=== PATIENT | female | born 1955 | race Two or more races ===

== ENCOUNTER 2022-10-04 11:30 | Inpatient (IN) | payer MEDICARE, OTHER ==
[~2022-10-04] VITALS: Ht 165.1 cm; Wt 68.0 kg
--- NOTE | 2022-10-04 11:50 | NUR ---
ROC TINOCO [phone]. WILL FOR OLLIE.
[2022-10-04] MEDS ORDERED: DICL75TA5 PO (12:20)
[2022-10-04] MEDS ORDERED: METF-442 PO (12:20)
[2022-10-04] MEDS ORDERED: LOSA100T31 PO (12:20)
[2022-10-04] MEDS ORDERED: CLOT15CR27 TP (12:20)
[2022-10-04] MEDS ORDERED: SIMV-46 PO (12:20)
[2022-10-04] MEDS ORDERED: EMPA10TA PO (12:20)
[2022-10-04] MEDS ORDERED: GLIM2TAB31 PO (12:20)
[2022-10-04] MEDS ORDERED: HYDR25TA4 PO (12:20)
[2022-10-04] MEDS ORDERED: DICL100G34 TP (12:20)
[2022-10-04] MEDS ORDERED: FLUT100D IH (12:20)
[2022-10-04] MEDS ORDERED: CHOL100043 PO (12:20)
[2022-10-04] MEDS ORDERED: GABA-532 PO (12:20)
[2022-10-04] MEDS ORDERED: AMLO10TA4 PO (12:20)
--- NOTE | 2022-10-04 14:19 | NUR ---
GOT BED 219-B ADMITTING INFORMED.
--- NOTE | 2022-10-04 14:49 | NUR ---
RN- ADMISSION NOTES PATIENT IS A 66 YEAR OLD FEMALE ADMITTED FROM [facility] ER. PATIENT WAS PLACED ON A 5150 HOLD FOR GD. PER HOLD, PATIENT STATES, "MY NEIGHBORS ARE OUT TO GET ME AND KILL ME." UPON FACE TO FACE ASSESSMENT, PATIENT IS ALERT AND ORIENTED X3, UNCOOPERATIVE, DISHEVELED WITH A BLUNTED AFFECT, AND PRESSURED SPEECH. DENIES SI/HI AT THIS TIME. PATIENT IS DISORIENTED, CONFUSED, MANIC, HYPERVERBAL, GUARDED, ANXIOUS, SUSPICIOUS, EASILY OVERWHELMED, CRYING OUT MULTIPLE DIFFERENT NAMES, AND A DISORGANIZED THOUGHT PROCESS. SKIN INTACT, PATIENT REFUSED ADMITTING PHOTO AND BLOOD GLUCOSE CHECK. VITAL SIGNS TAKEN: B/P 145/65, P 72, T 97.6, R 16, O2 SAT 99% ON ROOM AIR. INFORMED PSYCHIATRIST DR. BIRMINGHAM AND MED TRAINING PERSONNEL SUPERVISOR DR. ZHONG OF ADMISSION WITH PSYCHIATRIST ADMITTING ORDERS COMPLETED. PATIENT HANDBOOK GIVEN WITH PATIENT RIGHTS AND GUIDE TO PRESCRIPTIONS. WILL CONTINUE TO MONITOR Q 15 MINUTES PER GPS PROTOCOL FOR SAFETY AND BEHAVIOR.
[2022-10-04] MEDS ORDERED: MAGNESIUM HYDROXIDE 30 ML UDC PO PRN (15:00)
[2022-10-04] MEDS ORDERED: MAG HYDROX/AL HYDROX/SIMETH 30 ML UDC PO PRN (15:00)
--- NOTE | 2022-10-04 15:51 | NUR ---
RN-CO: DR BIRMINGHAM WAS NOTIFIED AND GAVE ADMITTING ORDERS, NOTED. DR ZHONG MADE AWARE OF THE PT ADMISSION AND FOR H&P AND TO RECONCILE HOME MEDICATIONS.
[2022-10-04 16:00] VITALS: BP 145/65
[2022-10-04] MEDS ORDERED: BLOOD SUGAR DIAGNOSTIC 1 EACH STRIP IN ONE (16:30)
[2022-10-04] MEDS ORDERED: DICLOFENAC TOPICAL 100 GM TUBE TP PRN (17:00)
[2022-10-04] MEDS: CLOTRIMAZOLE 1% 15 GM TUBE TP SCH (17:00)
[2022-10-04] MEDS: GLIMEPIRIDE 1 MG TABLET PO SCH ×2 (17:00→17:37)
[2022-10-04] MEDS: DICLOFENAC SODIUM 25 MG TABLET.DR PO SCH ×2 (17:00→17:37)
[2022-10-04] MEDS ORDERED: GABAPENTIN 100 MG CAPSULE PO PRN (17:00)
[2022-10-04] MEDS: METFORMIN 500 MG TABLET PO SCH ×2 (17:00→17:36)
--- NOTE | 2022-10-04 18:45 | NUR ---
RN- CLOSING NOTES PATIENT IS AWAKE, SITTING UP IN THE NOA CHAIR. BREATHING EVEN AND NON LABORED WITH NO S/S OF DISTRESS. PATIENT IS UNCOOPERATIVE, CONFUSED, DISORIENTED, GUARDED, DEPRESSED, ANXIOUS, LABILE, EASILY OVERWHELMED, HYPERVERBAL, WITH BOUTS OF CRYING OUT. PATIENT IS NOT MEDICATION COMPLIANT, EDUCATION OF RISKS/BENEFITS AND ENCOURAGEMENT X3 GIVEN, PATIENT CONTINUES TO REFUSE. DENIES SI/HI AT THIS TIME. WILL CONTINUE TO MONITOR Q 15 MINUTES FOR SAFETY AND BEHAVIOR.
[2022-10-04 20:00] VITALS: BP 133/89
[2022-10-04] MEDS: LORAZEPAM 0.5 MG TABLET PO PRN (20:27)
[2022-10-04 20:39] VITALS: BP 133/89
[2022-10-04] MEDS: TEMAZEPAM 7.5 MG CAPSULE PO PRN (22:13)
[2022-10-04] MEDS: SIMVASTATIN 20 MG TABLET PO SCH (22:13)
[2022-10-04] MEDS: BUDESONIDE RESPULE INH 0.5 MG/2 ML AMPUL.NEB NEB SCH (23:29)
[2022-10-05] MEDS: LORAZEPAM 0.5 MG TABLET PO PRN ×3 (07:05→09:02)
[2022-10-05] MEDS: BUDESONIDE RESPULE INH 0.5 MG/2 ML AMPUL.NEB NEB SCH ×2 (07:05→15:00)
--- NOTE | 2022-10-05 07:05 | NUR ---
rn notes: patient refused medication spoke to son over the phone but still refused medication, patient is agitated, with crying episode will continue to monitor.
[2022-10-05 08:00] VITALS: BP 121/57
[2022-10-05] MEDS: GLIMEPIRIDE 1 MG TABLET PO SCH ×2 (08:43→16:21)
[2022-10-05] MEDS: CHOLECALCIFEROL (VITAMIN D 3) 400 UNIT TABLET PO SCH (08:44)
[2022-10-05] MEDS: LOSARTAN POTASSIUM 50 MG TABLET PO SCH (08:45)
[2022-10-05] MEDS: HYDROCHLOROTHIAZIDE 25 MG TABLET PO SCH (08:46)
[2022-10-05] MEDS: METFORMIN 500 MG TABLET PO SCH ×2 (08:46→16:21)
[2022-10-05] MEDS: AMLODIPINE BESYLATE 10 MG TABLET PO SCH (08:47)
[2022-10-05] MEDS: DICLOFENAC SODIUM 25 MG TABLET.DR PO SCH (09:03)
[2022-10-05] MEDS: ACETAMINOPHEN 325 MG TABLET PO PRN ×2 (09:13→21:15)
--- NOTE | 2022-10-05 09:13 | NUR ---
NURSE NOTE: PT VERY ANXIOUS, CRYING AND C/O PAIN. ATIVAN AND TYL ADMIN ORDERED. PT JODIE WELL. WILL CONT TO MONITOR.
[2022-10-05] MEDS: CLOTRIMAZOLE 1% 15 GM TUBE TP SCH ×2 (09:58→16:29)
--- NOTE | 2022-10-05 10:05 | NUR ---
NURSE NOTE: PT CALM AT THIS TIME. SAYS THAT SHE FEELS BETTER. LESS PAIN AT THIS TIME. WILL CONT TO MONITOR.
[2022-10-05 16:00] VITALS: BP 112/55
[2022-10-05] MEDS: DICLOFENAC 75 MG PO SCH (16:21)
[2022-10-05] MEDS: CEPHALEXIN MONOHYDRATE 500 MG CAPSULE PO SCH ×2 (16:21→21:00)
[2022-10-05 16:27] LABS: BASOPHILS # (AUTO) 0.1 K/uL (0.0-0.2); BASOPHILS % (AUTO) 1.9 % (0.0-2.0); EOSINOPHILS % (AUTO) 3.4 % (0.0-6.0); HEMATOCRIT 39 % (33-45); HEMOGLOBIN 13.2 g/dL (11.5-14.8); LYMPHOCYTES # (AUTO) 1.6 K/uL (0.8-4.8); LYMPHOCYTES % (AUTO) 20.6 % (20.0-44.0); MEAN CORPUSCULAR HGB CONC 34 g/dl (31.0-36.0); MEAN CORPUSCULAR VOLUME 94 fL (82-100); MONOCYTES # (AUTO) 0.5 K/uL (0.1-1.30); MONOCYTES % (AUTO) 6.5 % (2.0-12.0); NEUTROPHILS # (AUTO) 5.2 K/uL (1.8-8.9); NEUTROPHILS % (AUTO) 67.6 % (43.0-81.0); PLATELET COUNT (AUTO) 300 K/uL (150-450); RED BLOOD CELL COUNT(AUTO) 4.21 MIL/uL (4.0-5.2); WHITE BLOOD COUNT (AUTO) 7.6 K/uL (4.3-11.0)
[2022-10-05] MEDS ORDERED: OLANZAPINE 2.5 MG TABLET PO PRN (16:30)
[2022-10-05 16:34] LABS: CALCIUM, SERUM 9.5 mg/dL (8.5-10.1); CREATININE 0.6 mg/dL (0.6-1.3); POTASSIUM 3.8 mmol/L (3.5-5.1)
--- NOTE | 2022-10-05 19:25 | NUR ---
NURSE NOTE: URINE SPEC COLLECTED FOR UA AND UCX. CALLED LAB TO ENDS BREAKAGE CLERK. WILL CONT TO MONITOR.
[2022-10-05 20:20] LABS: BILIRUBIN,URINE NEGATIVE (NEGATIVE); COLOR,URINE YELLOW (YELLOW); LEUKOCYTE ESTERASE ,URINE NEGATIVE (NEGATIVE); NITRITE, URINE NEGATIVE (NEGATIVE); PROTEIN,URINE NEGATIVE (NEGATIVE); UGLUCOSE 3+ mg/dL (NEGATIVE); UROBILINOGEN,URINE 0.2 EU/dL (0.2)
[2022-10-05] MEDS ORDERED: OLANZAPINE 2.5 MG TABLET PO SCH (21:00)
[2022-10-05 21:15] VITALS: BP 145/67
[2022-10-05] MEDS: SIMVASTATIN 20 MG TABLET PO SCH (21:15)
[2022-10-05] MEDS: ENOXAPARIN SODIUM 40 MG/0.4 ML DISP.SYRIN SQ SCH (21:18)
[2022-10-05 21:26] LABS: BACTERIA,URINE None seen /HPF (None Seen); RBC,URINE 0-2 /HPF (0-2); WBC,URINE 0-2 /HPF (0-3)
[2022-10-05 21:27] LABS: HYALINE CASTS, URINE Few /LPF (None Seen); MUCUS,URINE Few /LPF (None Seen)
--- NOTE | 2022-10-05 21:30 | NUR ---
RN NOTE SPOKE WITH ENID OF [facility] ABOUT KEFLEX. SINCE IT WAS GIVEN AT 1600 AND IS Q12H, I WAS INFORMED TO GIVE THE 2100 DOSE AT 0000 TO GET BACK ONTO STANDARD TIME. CHARGE NURSE LINDA INFORMED. WILL START Q12H AT 0900 TOMORROW.
--- NOTE | 2022-10-06 00:32 | NUR ---
RN NOTE PT REFUSING KEFLEX AND ATIVAN AT THIS TIME. PT WILL NOT STOP CRYING AT THIS TIME. OBTAINED COMPUTER FORENSICS ANALYST BUT PT IS CONFUSED. CHARGE NURSE LINDA GARCIA.
[2022-10-06] MEDS: BUDESONIDE RESPULE INH 0.5 MG/2 ML AMPUL.NEB NEB SCH ×2 (07:05→16:16)
--- NOTE | 2022-10-06 07:14 | NUR ---
GPS RN NOTE RECEIVED PATIENT AWAKE IN GERICHAIR, NO S/S OF DISTRESS OR DISCOMFORT. PATIENT A/Ox2, COLOMBIAN SPEAKING. OCCASIONAL EPISODES OF CRYING AND YELLING, NO OTHER BEHAVIOR NOTED. WILL CONTINUE TO MONITOR.
--- NOTE | 2022-10-06 07:56 | NUR ---
PATIENT REFUSED TX. CLINICAL APPLICATIONS SPECIALIST NOTIFIED. Addendum: 10/06/22 at 0756 by CHRIS OBRIEN RT Amended: Links added.
[2022-10-06 08:00] VITALS: BP 109/53
[2022-10-06] MEDS: CHOLECALCIFEROL (VITAMIN D 3) 400 UNIT TABLET PO SCH (08:56)
[2022-10-06] MEDS: CEPHALEXIN MONOHYDRATE 500 MG CAPSULE PO SCH ×2 (08:56→21:23)
[2022-10-06] MEDS: GLIMEPIRIDE 1 MG TABLET PO SCH ×2 (08:56→16:21)
[2022-10-06] MEDS: METFORMIN 500 MG TABLET PO SCH ×2 (08:56→16:21)
[2022-10-06] MEDS: DICLOFENAC 75 MG PO SCH ×2 (08:58→16:20)
[2022-10-06] MEDS: CLOTRIMAZOLE 1% 15 GM TUBE TP SCH ×2 (08:58→16:20)
[2022-10-06] MEDS: LOSARTAN POTASSIUM 50 MG TABLET PO SCH (09:00)
[2022-10-06] MEDS: LORAZEPAM 0.5 MG TABLET PO PRN (09:00)
[2022-10-06] MEDS: AMLODIPINE BESYLATE 10 MG TABLET PO SCH (09:00)
[2022-10-06] MEDS: HYDROCHLOROTHIAZIDE 25 MG TABLET PO SCH (09:00)
--- NOTE | 2022-10-06 09:10 | NUR ---
RN NOTE PATIENT AGITATED AND ANXIOUS, CRYING AND UNABLE TO CALM. PRN LORAZEPAM ADMINISTERED.
[2022-10-06] MEDS: HYDROCODONE/APAP 5/325MG TABLET PO PRN ×2 (10:04→16:21)
--- NOTE | 2022-10-06 10:20 | NUR ---
RN NOTE [facility] EXPRESSED PAIN 7/10 OF R HIP. PRN NARCO ADMINISTERED.
--- NOTE | 2022-10-06 11:04 | NUR ---
FERDINAND Initial Discharge Note: Pt currently resides at home located at [facility] [address] [facility], [place] [address]; ([phone]). FERDINAND will contact pt's family. FERDINAND will work with the MD, family, and treatment team to help coordinate appropriate discharge.
--- NOTE | 2022-10-06 11:04 | NUR ---
FERDINAND Clinical Note: Pt placed on a 5150 hold for GD. Per hold, pt has been refusing care at home. Pt currently resides at home located at [facility] [address] [facility], [place] [address]; ([phone]). FERDINAND will contact pt's family.
--- NOTE | 2022-10-06 11:05 | NUR ---
Treatment Plan: Pt unable to sign treatment plan due to confusion.
--- NOTE | 2022-10-06 15:31 | NUR ---
FERDINAND Family Contact: FERDINAND contacted pt's daughter Mala ([phone]) to discuss treatment and discharge plan. FERDINAND left a voicemail.
[2022-10-06 16:10] VITALS: BP 123/65
--- NOTE | 2022-10-06 17:24 | NUR ---
RN NOTE PATIENT COMPLAINED OF PAIN OF R HIP, PRN NARCO ADMINISTERED FOR PAIN 11/16.
--- NOTE | 2022-10-06 18:52 | NUR ---
GPS RN CLOSING NOTE PATIENT AWAKE IN GERICHAIR, EATING WITH FAMILY. NO S/S OF DISTRESS OR DISCOMFORT. PATIENT A/Ox2, FRENCH SPEAKING. OCCASIONAL EPISODES OF CRYING OUT, NO OTHER BEHAVIOR NOTED. WILL CONTINUE TO MONITOR.
[2022-10-06 20:32] VITALS: BP 121/76
[2022-10-06] MEDS ORDERED: OLANZAPINE 2.5 MG TABLET PO SCH (21:00)
[2022-10-06] MEDS: ENOXAPARIN SODIUM 40 MG/0.4 ML DISP.SYRIN SQ SCH (21:22)
[2022-10-06] MEDS: SIMVASTATIN 20 MG TABLET PO SCH (21:22)
[2022-10-06] MEDS: TEMAZEPAM 7.5 MG CAPSULE PO PRN (23:51)
[2022-10-07] MEDS: LORAZEPAM 0.5 MG TABLET PO PRN ×2 (03:54→11:36)
--- NOTE | 2022-10-07 06:52 | NUR ---
GPS RN CLOSING NOTE PATIENT AWAKE IN GERICHAIR,AOX2 WITH CONFUSION UKRAINIAN SPEAKING.NO SOB/DISTRESS NOTED, OCCASIONAL EPISODES OF CRYING OUT,ANXIOUS,ALL MEDS GIVEN ORDERED,ALL NEEDS ATTENDED,PT TOOK HER MEDS,WILL ENDORSED TO NEXT SHIFT,
[2022-10-07 08:00] VITALS: BP 144/65
[2022-10-07] MEDS: BUDESONIDE RESPULE INH 0.5 MG/2 ML AMPUL.NEB NEB SCH ×2 (08:11→14:56)
[2022-10-07] MEDS ORDERED: OLANZAPINE 2.5 MG TABLET PO SCH (09:00)
[2022-10-07] MEDS: CHOLECALCIFEROL (VITAMIN D 3) 400 UNIT TABLET PO SCH (09:03)
[2022-10-07] MEDS: CEPHALEXIN MONOHYDRATE 500 MG CAPSULE PO SCH ×2 (09:03→21:11)
[2022-10-07] MEDS: METFORMIN 500 MG TABLET PO SCH ×2 (09:04→16:39)
[2022-10-07] MEDS: AMLODIPINE BESYLATE 10 MG TABLET PO SCH (09:04)
[2022-10-07] MEDS: LOSARTAN POTASSIUM 50 MG TABLET PO SCH (09:04)
[2022-10-07] MEDS: GLIMEPIRIDE 1 MG TABLET PO SCH ×2 (09:04→16:39)
[2022-10-07] MEDS: HYDROCHLOROTHIAZIDE 25 MG TABLET PO SCH (09:05)
[2022-10-07] MEDS: CLOTRIMAZOLE 1% 15 GM TUBE TP SCH ×2 (09:06→16:41)
[2022-10-07] MEDS: DICLOFENAC 75 MG PO SCH ×2 (09:06→16:41)
[2022-10-07 11:33] LABS: ALBUMIN 4.1 g/dL (3.4-5.0); BILIRUBIN,TOTAL 0.5 mg/dL (0.2-1.0); CREATININE 0.7 mg/dL (0.6-1.3); POTASSIUM 3.5 mmol/L (3.5-5.1); TOTAL PROTEIN, SERUM 7.7 g/dL (6.4-8.2)
--- NOTE | 2022-10-07 11:36 | NUR ---
NURSE NOTE: PT EXTREMELY ANXIOUS. CRYING, UNABLE TO REDIRECT. ATIVAN PO ADMIN ORDERED. PT JODIE WELL. WILL CONT TO MONITOR.
[2022-10-07 11:44] LABS: BASOPHILS % (AUTO) 0.5 % (0.0-2.0); EOSINOPHILS % (AUTO) 1.1 % (0.0-6.0); HEMATOCRIT 39 % (33-45); HEMOGLOBIN 13.4 g/dL (11.5-14.8); LYMPHOCYTES % (AUTO) 21.6 % (20.0-44.0); MEAN CORPUSCULAR HGB CONC 34 g/dl (31.0-36.0); MEAN CORPUSCULAR VOLUME 93 fL (82-100); MONOCYTES # (AUTO) 0.7 K/uL (0.1-1.30); NEUTROPHILS # (AUTO) 6.4 K/uL (1.8-8.9); NEUTROPHILS % (AUTO) 68.8 % (43.0-81.0); PLATELET COUNT (AUTO) 328 K/uL (150-450); RED BLOOD CELL COUNT(AUTO) 4.21 MIL/uL (4.0-5.2); WHITE BLOOD COUNT (AUTO) 9.4 K/uL (4.3-11.0)
--- NOTE | 2022-10-07 12:30 | NUR ---
NURSE NOTE: DAUGHTER AT BEDSIDE, PT CALM AT THIS TIME. ATIVAN EFFECTIVE AT THIS TIME. WILL CONT TO MONITOR.
[2022-10-07] MEDS: risperiDONE 1 MG TABLET PO SCH ×2 (12:48→16:38)
[2022-10-07 16:00] VITALS: BP 144/53
[2022-10-07] MEDS: ACETAMINOPHEN 325 MG TABLET PO PRN (17:23)
--- NOTE | 2022-10-07 17:30 | NUR ---
NURSE NOTE: PT C/O PAIN. REQUESTED NESSA AT THIS TIME. WILL CONT TO MONITOR. Addendum: 10/07/22 at 1748 by STEPHANIE MCCOLLUM RN NESSA SANTAMARIA.
[2022-10-07 20:10] VITALS: BP 130/71
[2022-10-07] MEDS: ENOXAPARIN SODIUM 40 MG/0.4 ML DISP.SYRIN SQ SCH (21:11)
[2022-10-07] MEDS: SIMVASTATIN 20 MG TABLET PO SCH (21:11)
[2022-10-07] MEDS: TEMAZEPAM 7.5 MG CAPSULE PO SCH (21:12)
[2022-10-08] MEDS: ACETAMINOPHEN 325 MG TABLET PO PRN (06:26)
[2022-10-08] MEDS: LORAZEPAM 0.5 MG TABLET PO PRN ×2 (06:46→19:32)
--- NOTE | 2022-10-08 07:00 | NUR ---
DOG CONTROL OFFICER OPENING NOTE PATIENT AWAKE, ORIENTED X2 CRYING. ATIVAN WAS GIVEN BY NIGHT NURSE, AWAITING FOR RESULTS. NO RESPIRATORY DISTRESS NOTED. SITTING ON NOA CHAIR WITH TABLE ACROSS THE STOMACH. SAFETY MEASURES IN PLACE, NOA CHAIR LOCKED AT PRESENT, BED LOCKED TO THE LOWEST POSITION. CONT. TO MONITOR.
[2022-10-08] MEDS: BUDESONIDE RESPULE INH 0.5 MG/2 ML AMPUL.NEB NEB SCH (07:30)
[2022-10-08 08:00] VITALS: BP 133/69
[2022-10-08] MEDS: CHOLECALCIFEROL (VITAMIN D 3) 400 UNIT TABLET PO SCH (09:46)
[2022-10-08] MEDS: CEPHALEXIN MONOHYDRATE 500 MG CAPSULE PO SCH ×3 (09:46→22:12)
[2022-10-08] MEDS: HYDROCHLOROTHIAZIDE 25 MG TABLET PO SCH (09:47)
[2022-10-08] MEDS: risperiDONE 1 MG TABLET PO SCH ×6 (09:47→22:13)
[2022-10-08] MEDS: GLIMEPIRIDE 1 MG TABLET PO SCH ×3 (09:47→17:12)
[2022-10-08] MEDS: METFORMIN 500 MG TABLET PO SCH ×3 (09:48→17:13)
[2022-10-08] MEDS: AMLODIPINE BESYLATE 10 MG TABLET PO SCH (09:48)
[2022-10-08] MEDS: LOSARTAN POTASSIUM 50 MG TABLET PO SCH (09:48)
[2022-10-08] MEDS: DICLOFENAC 75 MG PO SCH ×3 (09:49→17:13)
[2022-10-08] MEDS: CLOTRIMAZOLE 1% 15 GM TUBE TP SCH ×2 (09:50→17:00)
--- NOTE | 2022-10-08 14:00 | NUR ---
REPLENISHMENT SPECIALIST NOTE PATIENT INFORMED THAT SHE WILL HAVE CT SCAN TODAY AND PATIENT REFUSED. I CALL TO PATIENT' S DAUGHTER LORI TO HELP HER MOTHER TO UNDERSTAND HOW IMPORTANT IS FOR THE PATIENT TO HAVE THE CT SCAN DONE TODAY. PATIENT' DAUGHTER SPOKE TO THE PATIENT VIA PHONE AND PATIENT AGREE TO HAVE THE CT SCAN WITH A CONDITION TO GO TO CT SCAN ACCOMPANIED BY STAFF MEMBER FROM THIS UNIT. LORI PATIENT'S DAUGHTER WAS HAPPY WITH THE AGREEMENT. ANITHA(CHARGE NURSE) AWARE ABOUT THIS PLAN.
--- NOTE | 2022-10-08 14:33 | NUR ---
FERDINAND Family Contact: SW received a call from pt's daughter Mala ([phone]) and they stated they would want to fax clinicals to Nilsa Melgoza, F: [phone]). FERDINAND stated that she will send the clinicals when pt is stable because currently she is not stable.
--- NOTE | 2022-10-08 15:30 | NUR ---
ROLLER SKATES ASSEMBLER NOTE PATIENT RETURNED FROM CT SCAN DEPT. ACCOMPANIED BY TWO VOLUNTEER SERVICES MANAGER FROM OUR STAFF. PATIENT IS VERY CALM, NO S/S OF DISTRESS NOTED. CONT. TO MONITOR.
[2022-10-08 16:00] VITALS: BP 115/65
--- NOTE | 2022-10-08 17:00 | NUR ---
MULTIMEDIA MANAGER NOTE PATIENT REFUSED TO TAKE HER MEDICATION AT 1700. I CALLED TO PATIENT'S DAUGHTER TO LET HER KNOW AND SHE WAS NOT AVAILABLE, I JUST LEFT A MESSAGE. I ALSO NOTIFIED TO MY CHARGE NURSE (ANITHA BACH).
--- NOTE | 2022-10-08 18:52 | NUR ---
INSPECTOR PRECISION CLOSING NOTE PATIENT IS SITTING ON NOA-CHAIR, AWAKE AND NOT COOPERATIVE, REFUSING EVERYTHING THAT WE WANT TO ASSIST HER. SAFETY MEASURES IN PLACE. NOA CHAIR LOCKED. CLOSE TO THE NURSE STATION.I WILL ENDORSE TO THE FOLLOWING NURSE.
--- NOTE | 2022-10-08 19:33 | NUR ---
NURSE NOTE: PT EXTREMELY ANXIOUS. CRYING, UNABLE TO REDIRECT. ATIVAN PO ADMIN ORDERED. PT JODIE WELL. WILL CONT TO MONITOR.
[2022-10-08] MEDS: ENOXAPARIN SODIUM 40 MG/0.4 ML DISP.SYRIN SQ SCH ×2 (21:00→22:15)
[2022-10-08] MEDS: TEMAZEPAM 7.5 MG CAPSULE PO SCH ×2 (22:00→22:12)
[2022-10-08] MEDS: SIMVASTATIN 20 MG TABLET PO SCH ×2 (22:00→22:14)
--- NOTE | 2022-10-08 23:17 | NUR ---
NOTE: PATIENT REFUSED 21OO KEFLEX 500MG,LOVENOX 40MG,RESTORIL 7.5MG ,RISPERDAL 0.5MG,ZOCOR 20MG, EXPLAINED RISK AND BENEFITS ,RESIDENT SAID "NO" CHARGE MADE AWARE.
--- NOTE | 2022-10-09 07:00 | NUR ---
DESK TOP PUBLISHER OPENING NOTE PATIENT AWAKE AND CONFUSED BUT COOPERATIVE AT PRESENT. PATIENT DENIES PAIN AT PRESENT,NO RESPIRATORY DISTRESS NOTED. SITTING ON NOA-CHAIR . SAFETY MEASURES IN PLACE. NOA-CHAIR LOCKED AND PATIENT IS CLOSE TO THE NURSE STATION TO KEEP CLOSE OBSERVATION TO THE PATIENT.
[2022-10-09] MEDS: BUDESONIDE RESPULE INH 0.5 MG/2 ML AMPUL.NEB NEB SCH ×2 (07:05→15:50)
[2022-10-09 08:00] VITALS: BP 121/71
[2022-10-09] MEDS: CLOTRIMAZOLE 1% 15 GM TUBE TP SCH ×2 (09:00→17:14)
[2022-10-09] MEDS: METFORMIN 500 MG TABLET PO SCH ×2 (09:26→17:11)
[2022-10-09] MEDS: CHOLECALCIFEROL (VITAMIN D 3) 400 UNIT TABLET PO SCH (09:27)
[2022-10-09] MEDS: CEPHALEXIN MONOHYDRATE 500 MG CAPSULE PO SCH ×2 (09:27→20:02)
[2022-10-09] MEDS: AMLODIPINE BESYLATE 10 MG TABLET PO SCH (09:27)
[2022-10-09] MEDS: GLIMEPIRIDE 1 MG TABLET PO SCH ×2 (09:27→17:12)
[2022-10-09] MEDS: LOSARTAN POTASSIUM 50 MG TABLET PO SCH (09:28)
[2022-10-09] MEDS: HYDROCHLOROTHIAZIDE 25 MG TABLET PO SCH (09:28)
[2022-10-09] MEDS: risperiDONE 1 MG TABLET PO SCH ×5 (09:29→22:26)
[2022-10-09] MEDS: DICLOFENAC 75 MG PO SCH ×2 (09:30→17:14)
--- NOTE | 2022-10-09 10:20 | NUR ---
VOLTAGE REGULATOR ASSEMBLER NOTE PATIENT INFORMED REGARDING NAME AND PURPOSE OF HER MEDICATIONS. PATIENT HAS AGREE TO TAKE HER MORNING MEDICATIONS WITHOUT CRUSHING. THE WHOLE PILL, JUST PUT ALL MEDICATIONS IN A SMALL MED-CUP AND PATIENT PUT ALL MEDS AT ONCE INTO HER MOUTH WITH WATER. NO S/S OF ASPIRATION NOTED. PATIENT SWALLOWED ALL THE PILLS WITHOUT DIFFICULTY.
--- NOTE | 2022-10-09 10:30 | NUR ---
SPECK DYER NOTE THE MEDICAL DOCTOR IS HERE AND SPOKE WITH THE PATIENT REGARDING CT SCAN RESULT(NEGATIVE). THERE IS A PLAN TO ORDER PHYSICAL THERAPY TO HELP THE PATIENT TO IMPROVE HER MOBILITY.
[2022-10-09 11:51] LABS: THYROID STIMULATING HORMONE 0.941 uIU/mL (0.358-3.74)
--- NOTE | 2022-10-09 14:13 | NUR ---
PICKER AND SORTER LOAD AND UNLOAD NOTE PATIENT C/O SACRUM AREA PAIN DUE TO BE SITTING ON NOA CHAIR. PATIENT ASSISTED TO THE BATHROOM WITH TWO CONSTRUCTION TECH. NORCO PAIN MEDICATION ADMINISTERED ALSO. CONT. TO MONITOR.
[2022-10-09] MEDS: HYDROCODONE/APAP 5/325MG TABLET PO PRN ×2 (15:11→19:57)
[2022-10-09 16:01] VITALS: BP 100/64
[2022-10-09] MEDS: BENZTROPINE MESYLATE (1 MG) 1 MG TABLET PO SCH (17:12)
[2022-10-09] MEDS: ACETAMINOPHEN 325 MG TABLET PO PRN (19:58)
--- NOTE | 2022-10-09 19:59 | NUR ---
VN NOTE PATIENT C/O SACRUM AREA PAIN DUE TO BE SITTING ON NAO CHAIR. TYLENOL 650MG PO PAIN MEDICATION ADMINISTERED .WILL CONT. TO MONITOR.
[2022-10-09] MEDS: ENOXAPARIN SODIUM 40 MG/0.4 ML DISP.SYRIN SQ SCH (20:04)
[2022-10-09] MEDS: SIMVASTATIN 20 MG TABLET PO SCH ×2 (22:00→22:21)
[2022-10-09] MEDS: TEMAZEPAM 7.5 MG CAPSULE PO SCH (22:00)
--- NOTE | 2022-10-09 22:34 | NUR ---
NOTES: PATIENT REFUSED 2200 MEDICATION,RESTORIL,RISPERDAL, AND ZOCOR. EXPLAINED RISK AND BENEFITS PATIENT STRONGLY REFUSED AND STATED "NO".PATIENT START CRYING AND SCREAMING, AGITATED.WILL CONTINUE TO MONITOR.
[2022-10-10] MEDS: BUDESONIDE RESPULE INH 0.5 MG/2 ML AMPUL.NEB NEB SCH ×2 (07:05→16:13)
[2022-10-10 08:00] VITALS: BP 100/63
[2022-10-10] MEDS: GLIMEPIRIDE 1 MG TABLET PO SCH ×2 (08:06→17:00)
[2022-10-10] MEDS: BENZTROPINE MESYLATE (1 MG) 1 MG TABLET PO SCH ×2 (08:07→17:25)
[2022-10-10] MEDS: LOSARTAN POTASSIUM 50 MG TABLET PO SCH (08:07)
[2022-10-10] MEDS: METFORMIN 500 MG TABLET PO SCH ×2 (08:08→17:00)
[2022-10-10] MEDS: CEPHALEXIN MONOHYDRATE 500 MG CAPSULE PO SCH (08:09)
[2022-10-10] MEDS: HYDROCHLOROTHIAZIDE 25 MG TABLET PO SCH (08:09)
[2022-10-10] MEDS: CLOTRIMAZOLE 1% 15 GM TUBE TP SCH ×2 (08:10→17:24)
[2022-10-10] MEDS: AMLODIPINE BESYLATE 10 MG TABLET PO SCH (08:10)
[2022-10-10] MEDS: CHOLECALCIFEROL (VITAMIN D 3) 400 UNIT TABLET PO SCH (08:10)
[2022-10-10] MEDS: DICLOFENAC 75 MG PO SCH ×2 (08:11→17:24)
[2022-10-10] MEDS: risperiDONE 1 MG TABLET PO SCH ×4 (08:12→22:11)
[2022-10-10] MEDS: LORAZEPAM 0.5 MG TABLET PO PRN (08:23)
--- NOTE | 2022-10-10 08:23 | NUR ---
GIVEN ATIVAN 1 MG PO FOR YELLING OUT LOUDLY CONTINUALLY.
--- NOTE | 2022-10-10 14:01 | NUR ---
drowsy for several hours and unable to eat lunch.sleeping now.
[2022-10-10 16:00] VITALS: BP 119/61
--- NOTE | 2022-10-10 17:27 | NUR ---
pt. ate minimally so amaryl held.
--- NOTE | 2022-10-10 17:38 | NUR ---
glucophage held as well.pt.ate small amt. dinner.
--- NOTE | 2022-10-10 20:05 | NUR ---
CAMP DINING ROOM ATTENDANT OPENING NOTE RECEIVED PATIENT SITTING ON NOA-CHAIR WITH SAFETY MEASURES IN PLACE CLOSE TO NURSING STATION. A/OX2-3 CZECH SPEAKING,BREATHING EVEN AND NON-LABORED WITH EQUAL RISE AND FALL OF THE CHEST,RESIDENT IS CONFUSED ,DISORIENTED, CRYING ON AND OFF. PATIENT DENIES PAIN AT PRESENT,NO RESPIRATORY DISTRESS NOTED. ALL NEEDS ANTICIPATED.GOOD PERICARE RENDERED.WILL CONTINUE TO MONITOR Q26SETE FOR SAFETY AND BEHAVIOR.
[2022-10-10 20:49] VITALS: BP 125/60
[2022-10-10] MEDS: ENOXAPARIN SODIUM 40 MG/0.4 ML DISP.SYRIN SQ SCH (21:00)
[2022-10-10] MEDS: SIMVASTATIN 20 MG TABLET PO SCH (22:00)
[2022-10-10] MEDS: TEMAZEPAM 7.5 MG CAPSULE PO SCH (22:00)
--- NOTE | 2022-10-10 22:19 | NUR ---
NOTE: PATIENT REFUSED 2100 MEDICATION LOVENOX 40MG, AND 2200 RESTORIL 7.5 MG ,ZOCOR 20MG,RISPERDAL.EXPLAIN RISK AND BENEFITS .
[2022-10-11] MEDS: BUDESONIDE RESPULE INH 0.5 MG/2 ML AMPUL.NEB NEB SCH ×2 (07:05→15:00)
[2022-10-11 08:00] VITALS: BP 134/64
[2022-10-11] MEDS: CHOLECALCIFEROL (VITAMIN D 3) 400 UNIT TABLET PO SCH ×2 (09:31→09:45)
[2022-10-11] MEDS: risperiDONE 1 MG TABLET PO SCH ×5 (09:31→20:10)
[2022-10-11] MEDS: LOSARTAN POTASSIUM 50 MG TABLET PO SCH ×2 (09:32→09:45)
[2022-10-11] MEDS: METFORMIN 500 MG TABLET PO SCH ×3 (09:33→18:26)
[2022-10-11] MEDS: HYDROCHLOROTHIAZIDE 25 MG TABLET PO SCH ×2 (09:33→09:45)
[2022-10-11] MEDS: BENZTROPINE MESYLATE (1 MG) 1 MG TABLET PO SCH ×3 (09:33→18:25)
[2022-10-11] MEDS: GLIMEPIRIDE 1 MG TABLET PO SCH ×3 (09:33→18:26)
[2022-10-11] MEDS: AMLODIPINE BESYLATE 10 MG TABLET PO SCH ×2 (09:34→09:45)
[2022-10-11] MEDS: CLOTRIMAZOLE 1% 15 GM TUBE TP SCH ×3 (09:36→18:26)
[2022-10-11] MEDS: DICLOFENAC 75 MG PO SCH ×3 (09:36→18:25)
--- NOTE | 2022-10-11 09:50 | NUR ---
MEDICATION NOTE PATIENT IS A/Ox1-2, REFUSING ALL [id number] PO MEDICATIONS. REDIRECTION AND REORIENTATION WAS ATTEMPTED AND PATIENT CONTINUED TO REFUSE MEDICATION. EXPLAINED THE BENEFITS OF MEDICATION REGIME, PATIENT REQUESTED PO MEDICATION IN APPLE SAUCES, MEDICATION WAS CRUSHED. ONCE ALL AM MEDICATION WAS CRUSHED, PATIENT REFUSED MEDICATION. UNABLE TO RETURN TO [facility].
[2022-10-11] MEDS: LORAZEPAM 0.5 MG TABLET PO PRN ×2 (10:24→12:32)
[2022-10-11] MEDS: HYDROCODONE/APAP 5/325MG TABLET PO PRN (10:24)
--- NOTE | 2022-10-11 10:51 | NUR ---
MEDICATION NOTE PATIENT REQUESTED PAIN MEDICATION FOR HER LEG. PATIENT AGITATED, YELLING. PATIENT WAS BROUGHT PAIN MEDICATION AND PRN FOR AGITATION. PATIENT THEN THREW MEDICATION ON THE FLOOR. CLAIMING SHE DIDN'T WANT ANY MEDICATION. MEDICATION WAS WASTED. MIKALA RICHARDSON WITNESSED.
[2022-10-11] MEDS: ACETAMINOPHEN 325 MG TABLET PO PRN (12:32)
[2022-10-11 16:00] VITALS: BP 130/74
[2022-10-11] MEDS: ENOXAPARIN SODIUM 40 MG/0.4 ML DISP.SYRIN SQ SCH (20:07)
[2022-10-11] MEDS: SIMVASTATIN 20 MG TABLET PO SCH (20:07)
[2022-10-11] MEDS: TEMAZEPAM 7.5 MG CAPSULE PO SCH (20:08)
[2022-10-11 20:15] VITALS: BP 133/60
--- NOTE | 2022-10-11 20:21 | NUR ---
TAX EXAMINER NOTE:PATIENT 2200 MEDICATION GIVEN ZOCOR 20 MG, RESTORIL 7.5, RISPERDAL 1MG PER FAMILY REQUEST.BEFORE THEY LEFT.BECAUSE PATIENT CAN ONLY TAKE THE MEDICATION WITH THE PRESENT OF THE FAMILY.CHARGE NURSE MADE AWARE.
[2022-10-12] MEDS: BUDESONIDE RESPULE INH 0.5 MG/2 ML AMPUL.NEB NEB SCH ×2 (07:05→14:08)
[2022-10-12 08:00] VITALS: BP 149/69
[2022-10-12] MEDS: AMLODIPINE BESYLATE 10 MG TABLET PO SCH (08:48)
[2022-10-12] MEDS: CHOLECALCIFEROL (VITAMIN D 3) 400 UNIT TABLET PO SCH (08:48)
[2022-10-12] MEDS: risperiDONE 1 MG TABLET PO SCH ×4 (08:48→21:47)
[2022-10-12] MEDS: GLIMEPIRIDE 1 MG TABLET PO SCH ×2 (08:49→16:50)
[2022-10-12] MEDS: BENZTROPINE MESYLATE (1 MG) 1 MG TABLET PO SCH ×2 (08:49→16:52)
[2022-10-12] MEDS: HYDROCHLOROTHIAZIDE 25 MG TABLET PO SCH (08:49)
[2022-10-12] MEDS: LOSARTAN POTASSIUM 50 MG TABLET PO SCH (08:50)
[2022-10-12] MEDS: DICLOFENAC 75 MG PO SCH ×2 (08:54→17:23)
[2022-10-12] MEDS: METFORMIN 500 MG TABLET PO SCH ×2 (08:54→16:50)
[2022-10-12] MEDS: CLOTRIMAZOLE 1% 15 GM TUBE TP SCH ×2 (08:55→17:24)
--- NOTE | 2022-10-12 10:31 | NUR ---
Court Notification: FERDINAND contacted daughter Mala ([phone]) and left a voicemail of [phone] hearing.
--- NOTE | 2022-10-12 10:31 | NUR ---
Court Hearing: Patient's court hearing for 1600 was today and it was upheld for GD.
[2022-10-12] MEDS: LORAZEPAM 0.5 MG TABLET PO PRN (12:15)
[2022-10-12] MEDS: ACETAMINOPHEN 325 MG TABLET PO PRN (12:15)
--- NOTE | 2022-10-12 12:15 | NUR ---
NURSE NOTE: PT AGITATED AT THIS TIME. YELLING, THINKS SHE SEES SOMEONE GETTING ATTACKED. ATIVAN PO ADMIN ORDERED. PT JODIE WELL. WILL CONT TO MONITOR.
[2022-10-12 12:24] LABS: BASOPHILS # (AUTO) 0.1 K/uL (0.0-0.2); BASOPHILS % (AUTO) 0.8 % (0.0-2.0); HEMATOCRIT 39 % (33-45); HEMOGLOBIN 13.3 g/dL (11.5-14.8); LYMPHOCYTES # (AUTO) 1.8 K/uL (0.8-4.8); LYMPHOCYTES % (AUTO) 24.1 % (20.0-44.0); MEAN CORPUSCULAR HGB CONC 34 g/dl (31.0-36.0); MEAN CORPUSCULAR VOLUME 95 fL (82-100); MONOCYTES # (AUTO) 0.6 K/uL (0.1-1.30); MONOCYTES % (AUTO) 8.5 % (2.0-12.0); NEUTROPHILS # (AUTO) 4.8 K/uL (1.8-8.9); NEUTROPHILS % (AUTO) 63.6 % (43.0-81.0); PLATELET COUNT (AUTO) 307 K/uL (150-450); RED BLOOD CELL COUNT(AUTO) 4.14 MIL/uL (4.0-5.2); WHITE BLOOD COUNT (AUTO) 7.6 K/uL (4.3-11.0)
[2022-10-12 12:39] LABS: ALBUMIN 3.6 g/dL (3.4-5.0); BILIRUBIN,TOTAL 0.6 mg/dL (0.2-1.0); CALCIUM, SERUM 9.7 mg/dL (8.5-10.1); CREATININE 0.7 mg/dL (0.6-1.3); MAGNESIUM 1.3 mg/dL (1.8-2.4); POTASSIUM 3.2 mmol/L (3.5-5.1); TOTAL PROTEIN, SERUM 7.3 g/dL (6.4-8.2)
--- NOTE | 2022-10-12 13:15 | NUR ---
NURSE NOTE: PT CALM AT THIS TIME. ATIVAN EFFECTIVE AT THIS TIME. WILL CONT TO MONITOR.
[2022-10-12 16:00] VITALS: BP 107/52
[2022-10-12] MEDS ORDERED: POTASSIUM CHLORIDE 20 MEQ TAB.PRT.SR PO ONE (16:00)
--- NOTE | 2022-10-12 18:57 | NUR ---
NURSE NOTE: DR ORELLANA INFORMED THAT MAG IS LOW. ORDERED MAG OXIDE 400MG. PLACED ORDER. WILL ENDORSE TO PM SHIFT.
[2022-10-12 20:00] VITALS: BP 106/61
[2022-10-12] MEDS: Z GUARD REMEDY 4 OZ OINT TP SCH (20:39)
[2022-10-12] MEDS: MAGNESIUM OXIDE 400 MG TABLET PO SCH (21:35)
[2022-10-12] MEDS: TEMAZEPAM 7.5 MG CAPSULE PO SCH (21:35)
[2022-10-12] MEDS: ENOXAPARIN SODIUM 40 MG/0.4 ML DISP.SYRIN SQ SCH (21:37)
[2022-10-12] MEDS: SIMVASTATIN 20 MG TABLET PO SCH (21:47)
--- NOTE | 2022-10-13 05:42 | NUR ---
RN NOTE RT DID EKG FOR THIS PT. ST WITH HR AT 116. VITAL SIGNS ARE THE FOLLOWING: BP IS 134/58; HR IS 103; TEMP IS 97.8 AND O2 SAT IS 96% ON RA. NOTIFIED CHARGE NURSE, LINDA AND Latosha MUNOZ.
[2022-10-13 05:45] VITALS: BP 134/58
--- NOTE | 2022-10-13 05:48 | NUR ---
RN NOTE RT DID EKG FOR THIS PT. ST WITH HR AT 116. VITAL SIGNS ARE THE FOLLOWING: BP IS 134/58; HR IS 103; TEMP IS 97.8 AND O2 SAT IS 96% ON RA. NOTIFIED JESSE AYALA
[2022-10-13] MEDS: LORAZEPAM 0.5 MG TABLET PO PRN (05:56)
--- NOTE | 2022-10-13 05:56 | NUR ---
RN NOTE PT IS EXPERIENCING ANXIETY. PRN PO MEDICATION, ATIVAN 1 MG, ADMINISTERED TO THE PT. DR. BIRMINGHAM NOTIFIED.
--- NOTE | 2022-10-13 06:10 | NUR ---
RN NOTE PT DID NOT HAVE URINE OUTPUT DURING THE SHIFT. USED BLADDER SCANNER AND RECEIVED THE FOLLOWING: RLQ 158 ML; AND LUQ [address] BIRMINGHAM NOTIFIED. CHARGE NURSE, LINDA GARCIA.WAITING FOR ORDERS.
--- NOTE | 2022-10-13 06:40 | NUR ---
RN NOTE RECEIVED LAB ORDER FOR TROPONIN I FROM GILBERTO MUNOZ. WILL ENDORSE NEXT SHIFT NURSE TO FOLLOW UP.
--- NOTE | 2022-10-13 06:42 | NUR ---
RN NOTE WILL ENDORSE NEXT SHIFT NURSE TO MONITOR PT'S URINE OUTPUT.
[2022-10-13] MEDS: BUDESONIDE RESPULE INH 0.5 MG/2 ML AMPUL.NEB NEB SCH ×2 (07:05→15:00)
[2022-10-13 08:00] VITALS: BP 129/64
[2022-10-13] MEDS: risperiDONE 1 MG TABLET PO SCH ×4 (08:43→19:54)
[2022-10-13] MEDS: CHOLECALCIFEROL (VITAMIN D 3) 400 UNIT TABLET PO SCH (08:43)
[2022-10-13] MEDS: AMLODIPINE BESYLATE 10 MG TABLET PO SCH (08:44)
[2022-10-13] MEDS: HYDROCHLOROTHIAZIDE 25 MG TABLET PO SCH (08:44)
[2022-10-13] MEDS: LOSARTAN POTASSIUM 50 MG TABLET PO SCH (08:44)
[2022-10-13] MEDS: METFORMIN 500 MG TABLET PO SCH ×2 (08:44→18:19)
[2022-10-13] MEDS: BENZTROPINE MESYLATE (1 MG) 1 MG TABLET PO SCH ×2 (08:45→18:19)
[2022-10-13] MEDS: GLIMEPIRIDE 1 MG TABLET PO SCH ×2 (08:46→18:19)
[2022-10-13] MEDS: DICLOFENAC 75 MG PO SCH ×2 (08:47→17:00)
[2022-10-13] MEDS: CLOTRIMAZOLE 1% 15 GM TUBE TP SCH ×2 (08:47→17:00)
[2022-10-13] MEDS: Z GUARD REMEDY 4 OZ OINT TP SCH ×2 (08:47→20:00)
--- NOTE | 2022-10-13 11:10 | NUR ---
Facility Contact: FERDINAND sent clinicals to [facility] , F: [phone] to admissions per family request. SW sent H & P, progress notes, and medication list.
--- NOTE | 2022-10-13 12:20 | NUR ---
RUBA HELD PER DR. BIRMINGHAM ORDERS AND PATIENT SEDATION.
[2022-10-13 13:07] LABS: BASOPHILS # (AUTO) 0.1 K/uL (0.0-0.2); BASOPHILS % (AUTO) 0.9 % (0.0-2.0); EOSINOPHILS % (AUTO) 3.1 % (0.0-6.0); HEMATOCRIT 36 % (33-45); LYMPHOCYTES % (AUTO) 32.6 % (20.0-44.0); MEAN CORPUSCULAR HGB CONC 34 g/dl (31.0-36.0); MEAN CORPUSCULAR VOLUME 94 fL (82-100); MONOCYTES # (AUTO) 0.4 K/uL (0.1-1.30); MONOCYTES % (AUTO) 6.7 % (2.0-12.0); NEUTROPHILS # (AUTO) 3.6 K/uL (1.8-8.9); NEUTROPHILS % (AUTO) 56.7 % (43.0-81.0); PLATELET COUNT (AUTO) 277 K/uL (150-450); WHITE BLOOD COUNT (AUTO) 6.3 K/uL (4.3-11.0)
[2022-10-13 13:55] LABS: ALBUMIN 3.2 g/dL (3.4-5.0); BILIRUBIN,TOTAL 0.5 mg/dL (0.2-1.0); CALCIUM, SERUM 9.2 mg/dL (8.5-10.1); CREATININE 0.8 mg/dL (0.6-1.3); MAGNESIUM 1.4 mg/dL (1.8-2.4); POTASSIUM 3.5 mmol/L (3.5-5.1); TOTAL PROTEIN, SERUM 6.2 g/dL (6.4-8.2)
[2022-10-13 16:05] VITALS: BP 101/53
[2022-10-13] MEDS: MAGNESIUM OXIDE 400 MG TABLET PO SCH (19:52)
[2022-10-13] MEDS: SIMVASTATIN 20 MG TABLET PO SCH (19:53)
[2022-10-13 20:00] VITALS: BP 111/51
[2022-10-13] MEDS ORDERED: MAGNESIUM OXIDE 400 MG TABLET PO ONE (20:00)
[2022-10-13 20:58] VITALS: BP 111/51
[2022-10-13] MEDS ORDERED: ENOXAPARIN SODIUM 40 MG/0.4 ML DISP.SYRIN SQ ONE (21:38)
[2022-10-13] MEDS: ENOXAPARIN SODIUM 40 MG/0.4 ML DISP.SYRIN SQ SCH (21:42)
[2022-10-13] MEDS: TEMAZEPAM 7.5 MG CAPSULE PO SCH (21:48)
--- NOTE | 2022-10-14 04:18 | NUR ---
Closing notes: alert and orientated X2 with family around her at the beginning of the shift she was smiling and speaking in Tajik telling me about her children (positive ) The daughter fed her 1 hamburger and some fries good appitite! Took medication early while the family at the bedside she was compliant with the medications She took the restoril later w/o family at the bedside w/o coaxing. slept 10 hours thru the night no screaming or crying this 12 hours bed alarm on for her safety [employer] [employer] bed checks
[2022-10-14] MEDS: BUDESONIDE RESPULE INH 0.5 MG/2 ML AMPUL.NEB NEB SCH ×2 (07:28→14:19)
[2022-10-14 08:00] VITALS: BP 116/57
[2022-10-14] MEDS: CHOLECALCIFEROL (VITAMIN D 3) 400 UNIT TABLET PO SCH (08:40)
[2022-10-14] MEDS: AMLODIPINE BESYLATE 10 MG TABLET PO SCH (08:41)
[2022-10-14] MEDS: BENZTROPINE MESYLATE (1 MG) 1 MG TABLET PO SCH ×2 (08:42→16:39)
[2022-10-14] MEDS: GLIMEPIRIDE 1 MG TABLET PO SCH ×2 (08:43→16:40)
[2022-10-14] MEDS: METFORMIN 500 MG TABLET PO SCH ×2 (08:43→16:39)
[2022-10-14] MEDS: risperiDONE 1 MG TABLET PO SCH ×4 (08:43→21:07)
[2022-10-14] MEDS: HYDROCHLOROTHIAZIDE 25 MG TABLET PO SCH (08:44)
[2022-10-14] MEDS: CLOTRIMAZOLE 1% 15 GM TUBE TP SCH ×2 (08:45→16:41)
[2022-10-14] MEDS: Z GUARD REMEDY 4 OZ OINT TP SCH ×2 (08:45→20:13)
[2022-10-14] MEDS: LOSARTAN POTASSIUM 50 MG TABLET PO SCH (08:45)
[2022-10-14] MEDS: DICLOFENAC 75 MG PO SCH ×2 (08:47→16:41)
[2022-10-14] MEDS: LORAZEPAM 0.5 MG TABLET PO PRN (11:58)
--- NOTE | 2022-10-14 12:00 | NUR ---
NURSE NOTES: PT AGITATED AT THIS TIME. ATIVAN PO ADMIN ORDERED. PT JODIE WELL. WILL CONT TO MONITOR. Addendum: 10/14/22 at 1758 by STEPHANIE MCCOLLUM RN PT ALSO C/O PAIN AND REQUESTED TYL, TYL PO ADMIN ORDERED.
[2022-10-14] MEDS: ACETAMINOPHEN 325 MG TABLET PO PRN (12:04)
--- NOTE | 2022-10-14 13:00 | NUR ---
NURSE NOTE: PT CALM AT THIS TIME. ATIVAN EFFECTIVE AT THIS TIME. ALSO PAIN DECREASED PER PT. WILL CONT TO MONITOR.
--- NOTE | 2022-10-14 14:06 | NUR ---
Facility Referral: FERDINAND sent clinicals to [facility] directly to Erika ([phone]) F:[phone] for placement. FERDINAND sent H & P, progress notes, and medication list.
[2022-10-14] MEDS ORDERED: LOPERAMIDE HCL (2 MG CAP) 2 MG CAPSULE PO PRN (14:30)
[2022-10-14 16:00] VITALS: BP 126/70
--- NOTE | 2022-10-14 17:10 | NUR ---
NURSE NOTE: URINE SPECIMEN- CLEAN CATCH COLLECTED AT THIS TIME. SENT DOWN TO LAB .
[2022-10-14 17:57] LABS: BILIRUBIN,URINE NEGATIVE (NEGATIVE); COLOR,URINE YELLOW (YELLOW); LEUKOCYTE ESTERASE ,URINE 3+ (NEGATIVE); NITRITE, URINE NEGATIVE (NEGATIVE); PROTEIN,URINE NEGATIVE (NEGATIVE); UGLUCOSE NEGATIVE (NEGATIVE); UROBILINOGEN,URINE 0.2 EU/dL (0.2)
[2022-10-14 18:23] LABS: BACTERIA,URINE 1+ /HPF (None Seen); RBC,URINE 0-2 /HPF (0-2); WBC,URINE 21-50 /HPF (0-3)
[2022-10-14 19:59] VITALS: BP 123/67
[2022-10-14] MEDS: ENOXAPARIN SODIUM 40 MG/0.4 ML DISP.SYRIN SQ SCH (20:10)
[2022-10-14] MEDS: CEPHALEXIN MONOHYDRATE 500 MG CAPSULE PO SCH (20:10)
--- NOTE | 2022-10-14 20:10 | NUR ---
GPS RN NOTES: RELAYED TO [facility] ON-CALL GILBERTO BELCHER REGARDING U/A RESULT AND ORDER WAS PLACED BY FIELD ARTILLERY FIRE CONTROL MAN KEFLEX 500MG PO Q12.
[2022-10-14] MEDS: MAGNESIUM OXIDE 400 MG TABLET PO SCH (21:06)
[2022-10-14] MEDS: SIMVASTATIN 20 MG TABLET PO SCH (21:07)
[2022-10-14] MEDS: TEMAZEPAM 7.5 MG CAPSULE PO SCH (22:14)
[2022-10-15] MEDS: BUDESONIDE RESPULE INH 0.5 MG/2 ML AMPUL.NEB NEB SCH ×2 (07:05→14:01)
[2022-10-15 08:00] VITALS: BP 128/60
[2022-10-15] MEDS: CEPHALEXIN MONOHYDRATE 500 MG CAPSULE PO SCH ×2 (08:13→20:07)
[2022-10-15] MEDS: METFORMIN 500 MG TABLET PO SCH ×2 (08:13→16:17)
[2022-10-15] MEDS: risperiDONE 1 MG TABLET PO SCH ×4 (08:14→21:05)
[2022-10-15] MEDS: BENZTROPINE MESYLATE (1 MG) 1 MG TABLET PO SCH ×2 (08:14→16:17)
[2022-10-15] MEDS: CHOLECALCIFEROL (VITAMIN D 3) 400 UNIT TABLET PO SCH (08:14)
[2022-10-15] MEDS: AMLODIPINE BESYLATE 10 MG TABLET PO SCH (08:15)
[2022-10-15] MEDS: LOSARTAN POTASSIUM 50 MG TABLET PO SCH (08:15)
[2022-10-15] MEDS: HYDROCHLOROTHIAZIDE 25 MG TABLET PO SCH (08:16)
[2022-10-15] MEDS: DICLOFENAC 75 MG PO SCH ×2 (08:16→16:17)
--- NOTE | 2022-10-15 08:55 | NUR ---
Facility Contact: SW spoke with Nilsa Melgoza [facility] , F: [phone] who stated DON denied pt due to not being able to provide appropriate care.
[2022-10-15] MEDS: CLOTRIMAZOLE 1% 15 GM TUBE TP SCH ×2 (09:13→16:18)
[2022-10-15] MEDS: Z GUARD REMEDY 4 OZ OINT TP SCH ×2 (09:13→20:17)
[2022-10-15] MEDS: GLIMEPIRIDE 1 MG TABLET PO SCH ×2 (09:46→16:16)
--- NOTE | 2022-10-15 10:28 | NUR ---
SNF Referral: Per family request, FERDINAND faxed clinicals: [facility] Attn: Delicia FERDINAND sent H & P, progress notes, and medication list.
--- NOTE | 2022-10-15 13:18 | NUR ---
SNF Contact: FERDINAND spoke with [facility] directly to Erika ([phone]) F:[phone] who denied pt.
--- NOTE | 2022-10-15 13:19 | NUR ---
SNF Contact: SW spoke [facility] Delicia admin who stated that they are denying pt.
[2022-10-15 16:00] VITALS: BP 100/60
--- NOTE | 2022-10-15 17:40 | NUR ---
RN-NOTES PATIENT IS VISIBLE IN THE UNIT UP IN THE NOA CHAIR ,A/O X2.NOTED WITH EPISODE OF CRYING,NEEDS FREQUENT REDIRECTIONS AND REASSURANCE. COMPLIANT WITH MEDICATIONS. ATTENDED ACTIVITY GROUPS WITH MINIMAL PARTICIPATIONS. NEEDS MODERATE ASSIST WITH ADL'S. ALL NEEDS ATTENDED AND ANTICIPATED. WILL CONT.MONITORING FOR SAFETY AND BEHAVIOR. WILL ENDORSE TO INCOMING SHIFT FOR THE CONTINUITY OF CARE.
[2022-10-15 20:00] VITALS: BP 155/70
[2022-10-15] MEDS: ENOXAPARIN SODIUM 40 MG/0.4 ML DISP.SYRIN SQ SCH (20:15)
--- NOTE | 2022-10-15 21:00 | NUR ---
RN NOTES PT.TRANSFER TO BED A/OX1 NO DISTRESS AT THIS TIME . PT CONFUSED,FORGETFUL, PARNOID,ANXIOUS EASILY AGITATED FOCUSED IN OWN THOUGHTS, COOPERTIVE/ UNCOOPERATIVE , MED COMPLIANT WITH ALOT OF ENCOURAGEMENT AND ENCOURAGED TO VERBALIZED FEELINGS,WILL CONTINUE TO MONITOR FOR SAFETY AND BEHAVIOR.
[2022-10-15] MEDS: MAGNESIUM OXIDE 400 MG TABLET PO SCH (21:05)
[2022-10-15] MEDS: SIMVASTATIN 20 MG TABLET PO SCH (21:06)
[2022-10-15] MEDS: TEMAZEPAM 7.5 MG CAPSULE PO SCH (22:15)
--- NOTE | 2022-10-16 06:31 | NUR ---
GPS RN NOTE: PATIENT RESTING IN BED 5 HOURS OF SLEEP, NO S/S OF DISTRESS OR DISCOMFORT. PT. BEHAVIOR UNCOOPERTIVE/COOPERTIVE ,BUT EASILY AGITATED, PARANOID, CONFUSED , FORGETFUL THROUGHOUT SHIFT, NEEDS FREQUENTLY REDIRECTIONS ,A/Ox1. NO S/S OF RESPIRATORY DISTRESS. MED COMPLIANT AT THIS SHIFT, SAFETY PRECAUTIONS MAINTAINED, ALL NEEDS ATTENDED AND ANTICIPATED, WILL CONTINUE TO MONITOR FOR SAFETY AND BEHAVIOR.
[2022-10-16] MEDS: BUDESONIDE RESPULE INH 0.5 MG/2 ML AMPUL.NEB NEB SCH ×2 (07:05→15:00)
[2022-10-16 08:00] VITALS: BP 124/72
[2022-10-16] MEDS: BENZTROPINE MESYLATE (1 MG) 1 MG TABLET PO SCH ×2 (08:30→16:13)
[2022-10-16] MEDS: CEPHALEXIN MONOHYDRATE 500 MG CAPSULE PO SCH (08:30)
[2022-10-16] MEDS: GLIMEPIRIDE 1 MG TABLET PO SCH ×2 (08:30→16:13)
[2022-10-16] MEDS: risperiDONE 1 MG TABLET PO SCH ×4 (08:31→21:49)
[2022-10-16] MEDS: CHOLECALCIFEROL (VITAMIN D 3) 400 UNIT TABLET PO SCH (08:31)
[2022-10-16] MEDS: METFORMIN 500 MG TABLET PO SCH ×2 (08:31→16:13)
[2022-10-16] MEDS: AMLODIPINE BESYLATE 10 MG TABLET PO SCH (08:32)
[2022-10-16] MEDS: DICLOFENAC 75 MG PO SCH ×2 (08:32→16:14)
[2022-10-16] MEDS: HYDROCHLOROTHIAZIDE 25 MG TABLET PO SCH (08:32)
[2022-10-16] MEDS: LOSARTAN POTASSIUM 50 MG TABLET PO SCH (08:33)
[2022-10-16] MEDS: Z GUARD REMEDY 4 OZ OINT TP SCH ×2 (08:36→20:21)
[2022-10-16] MEDS: CLOTRIMAZOLE 1% 15 GM TUBE TP SCH ×2 (08:36→16:21)
--- NOTE | 2022-10-16 08:42 | NUR ---
FERDINAND Family Contact: FERDINAND contacted pt's daughter Mlaa ([phone]) to discuss about placement. FERDINAND left a voicemail.
--- NOTE | 2022-10-16 10:52 | NUR ---
SNF Referral: SW sent clinicals to [facility] ([phone]) to [facility] bar for placement. SW sent H & P, progress notes, and medication list.
--- NOTE | 2022-10-16 11:35 | NUR ---
SNF Contact: SW spoke with [facility] ([phone]) to Ruthann bar who stated pt is accepted.
--- NOTE | 2022-10-16 11:53 | NUR ---
FERDINAND Family Contact: FERDINAND spoke with pt's daughter Mala ([phone]) and stated that pt is accepted at [facility] and she was agreeable of this. Daughter was upset that this loan underwriter read pt's diagnosis of H & P that doctor Allyson and indicated. SW explained that this loan underwriter read doctors diagnosis and educated on dementia of different stages. Daughter is in denial of pt's diagnosis. She explained that Allyson changed pt's diagnosis. FERDINAND explained that the diagnosis can change throughout her stay at the hospital. She was not understanding of this and kept going in circles. FERDINAND provided Mona Hall, director equipment.
[2022-10-16] MEDS: LORAZEPAM 0.5 MG TABLET PO PRN (12:26)
--- NOTE | 2022-10-16 12:28 | NUR ---
RN-NOTES NOTED PATIENT CRYING FOR NO REASON,TALKING TO SELF,REDIRECTED AND ATIVAN 1MG P.O GIVEN PRN ORDER. WILL CONT.MONITORING FOR SAFETY AND BEHAVIOR.
--- NOTE | 2022-10-16 13:30 | NUR ---
RN-NOTES PATIENT IN THE DAY ROOM PARTICIPATING WITH THE GROUP ACTIVITY,CALM,NO ACUTE DISTRESS NOTED.
[2022-10-16 15:57] VITALS: BP 122/61
[2022-10-16] MEDS: ACETAMINOPHEN 325 MG TABLET PO PRN (19:24)
--- NOTE | 2022-10-16 19:28 | NUR ---
CAR PUSHER OPENING NOTE RECEIVED PATIENT ON HER ROOM SITTING ON NOA-CHAIR WITH SAFETY MEASURES IN PLACE WITH FAMILY ON THE SIDE. A/OX2-3 CROATIAN SPEAKING,BREATHING EVEN AND NON-LABORED WITH EQUAL RISE AND FALL OF THE CHEST,PATIENT C/O PAIN 07/17,REQUESTED FOR PRN TYLENOL .ADMINISTERED PRN 650 MG PO.PATIENT APPEAR CALM AT THIS TIME.ALL NEEDS ANTICIPATED.WILL CONTINUE TO MONITOR Q15 FOR SAFETY AND BEHAVIOR.
[2022-10-16 20:00] VITALS: BP 125/48
[2022-10-16] MEDS: NITROFURANTOIN/MONOHYDRATE MACROCRYSTALS 100 MG CAPSULE PO SCH (20:15)
[2022-10-16] MEDS: ENOXAPARIN SODIUM 40 MG/0.4 ML DISP.SYRIN SQ SCH (20:15)
[2022-10-16] MEDS: MAGNESIUM OXIDE 400 MG TABLET PO SCH (21:47)
[2022-10-16] MEDS: TEMAZEPAM 7.5 MG CAPSULE PO SCH (21:48)
[2022-10-16] MEDS: SIMVASTATIN 20 MG TABLET PO SCH (23:42)
[2022-10-17] MEDS: LORAZEPAM 0.5 MG TABLET PO PRN (01:55)
--- NOTE | 2022-10-17 02:01 | NUR ---
NURSE NOTE: PT AGITATED AT THIS TIME. YELLING, THINKS SHE SEES SOMEONE GETTING ATTACKED. ATIVAN PO ADMIN ORDERED. PT JODIE WELL. WILL CONT TO MONITOR.
[2022-10-17] MEDS: BUDESONIDE RESPULE INH 0.5 MG/2 ML AMPUL.NEB NEB SCH ×2 (07:05→15:00)
[2022-10-17 08:00] VITALS: BP 127/69
--- NOTE | 2022-10-17 08:44 | NUR ---
PATIENT IS FOUND SLEEPING NO TX GIVEN. RN SAID NO WAKE PATIIENT. PATIENT APPEARED STABLE AND RESTING COMFORTABLY Addendum: 10/17/22 at 0845 by CHRIS OBRIEN RT Amended: Links added.
[2022-10-17] MEDS: NITROFURANTOIN/MONOHYDRATE MACROCRYSTALS 100 MG CAPSULE PO SCH ×2 (08:47→20:28)
[2022-10-17] MEDS: GLIMEPIRIDE 1 MG TABLET PO SCH ×2 (08:47→17:05)
[2022-10-17] MEDS: BENZTROPINE MESYLATE (1 MG) 1 MG TABLET PO SCH ×2 (08:47→17:04)
[2022-10-17] MEDS: METFORMIN 500 MG TABLET PO SCH ×2 (08:47→17:05)
[2022-10-17] MEDS: DICLOFENAC 75 MG PO SCH ×2 (08:47→17:04)
[2022-10-17] MEDS: risperiDONE 1 MG TABLET PO SCH ×4 (08:47→21:09)
[2022-10-17] MEDS: AMLODIPINE BESYLATE 10 MG TABLET PO SCH (08:48)
[2022-10-17] MEDS: LOSARTAN POTASSIUM 50 MG TABLET PO SCH (08:48)
[2022-10-17] MEDS: HYDROCHLOROTHIAZIDE 25 MG TABLET PO SCH (08:48)
[2022-10-17] MEDS: CHOLECALCIFEROL (VITAMIN D 3) 400 UNIT TABLET PO SCH (08:48)
[2022-10-17] MEDS: CLOTRIMAZOLE 1% 15 GM TUBE TP SCH ×2 (08:49→17:06)
[2022-10-17] MEDS: Z GUARD REMEDY 4 OZ OINT TP SCH ×2 (08:49→20:29)
[2022-10-17] MEDS ORDERED: MAGNESIUM OXIDE 400 MG TABLET PO ONE (10:00)
--- NOTE | 2022-10-17 15:12 | NUR ---
RN-NOTES PATIENT IS VISIBLE IN THE UNIT A/OX1-2,FORGETFUL AT TIMES,AMBULATORY STEADY GAIT. PATIENT IS COMPLIANT WITH MEDICATIONS,ATTENDED GROUPS,COOPERATIVE WITH THE STAFF. ENCOURAGED TO VERBALIZE FEELINGS ANS CONCERN TO THE STAFF. PATIENT VERBALIZED UNDERSTANDING. ALL NEEDS ATTENDED AND ANTICIPATED. WILL CONT. MONITORING Q 15 MINS. FOR SAFETY AND BEHAVIOR. Addendum: 10/17/22 at 1517 by DIANNE GAN RN DOCUMENTED IN WRONG PATIENT.
--- NOTE | 2022-10-17 15:25 | NUR ---
RN-NOTES PATIENT STAYS IN THE ROOM MOST OF THE TIME SLEEPING ,A/O X2. NO ACUTE DISTRESS NOTED .NEEDS FREQUENT REDIRECTIONS AND REASSURANCE. COMPLIANT WITH MEDICATIONS. ATTENDED ACTIVITY GROUPS WITH MINIMAL PARTICIPATIONS. NEEDS MODERATE ASSIST WITH ADL'S. ALL NEEDS ATTENDED AND ANTICIPATED. WILL CONT.MONITORING FOR SAFETY AND BEHAVIOR. WILL ENDORSE TO INCOMING SHIFT FOR THE CONTINUITY OF CARE.
[2022-10-17 16:00] VITALS: BP 110/60
[2022-10-17] MEDS: HYDROCODONE/APAP 5/325MG TABLET PO PRN (17:44)
--- NOTE | 2022-10-17 20:26 | NUR ---
RN NOTES:PT.RESTING IN ROOM/A/O X1 NO DISTRESS AT THIS TIME . PT CONFUSED,FORGETFUL, PARNOID,ANXIOUS EASILY AGITATED FOCUSED IN OWN THOUGHTS, COOPERTIVE/ UNCOOPERATIVE , FAMILY VISITED, ENCOURAGED TO VERBALIZED FEELINGS,WILL CONTINUE TO MONITOR FOR SAFETY AND BEHAVIOR.
[2022-10-17] MEDS: ENOXAPARIN SODIUM 40 MG/0.4 ML DISP.SYRIN SQ SCH (20:34)
[2022-10-17 20:47] VITALS: BP 116/57
[2022-10-17] MEDS: MAGNESIUM OXIDE 400 MG TABLET PO SCH (21:08)
[2022-10-17] MEDS: SIMVASTATIN 20 MG TABLET PO SCH (21:09)
[2022-10-17] MEDS: TEMAZEPAM 7.5 MG CAPSULE PO SCH (22:16)
[2022-10-18] MEDS: BUDESONIDE RESPULE INH 0.5 MG/2 ML AMPUL.NEB NEB SCH ×2 (07:05→14:11)
--- NOTE | 2022-10-18 07:08 | NUR ---
RN NOTES: PT. REFUSED AM LABS , ENCOURAGED X3 PT. STRONGLY REFUSED ,PER PT.STATES LATER ,WHEN MY FAMILY IS HERE ,ENDORSE TO ON COMING NURSE.
[2022-10-18 08:00] VITALS: BP 136/57
[2022-10-18] MEDS: NITROFURANTOIN/MONOHYDRATE MACROCRYSTALS 100 MG CAPSULE PO SCH ×2 (08:26→20:06)
[2022-10-18] MEDS: HYDROCHLOROTHIAZIDE 25 MG TABLET PO SCH (08:27)
[2022-10-18] MEDS: BENZTROPINE MESYLATE (1 MG) 1 MG TABLET PO SCH ×2 (08:27→16:48)
[2022-10-18] MEDS: GLIMEPIRIDE 1 MG TABLET PO SCH ×2 (08:28→16:48)
[2022-10-18] MEDS: METFORMIN 500 MG TABLET PO SCH ×2 (08:28→16:48)
[2022-10-18] MEDS: LOSARTAN POTASSIUM 50 MG TABLET PO SCH (08:29)
[2022-10-18] MEDS: AMLODIPINE BESYLATE 10 MG TABLET PO SCH (08:30)
[2022-10-18] MEDS: Z GUARD REMEDY 4 OZ OINT TP SCH ×2 (08:30→20:07)
[2022-10-18] MEDS: CLOTRIMAZOLE 1% 15 GM TUBE TP SCH ×2 (08:30→16:49)
[2022-10-18] MEDS: risperiDONE 1 MG TABLET PO SCH ×4 (08:30→20:06)
[2022-10-18] MEDS: CHOLECALCIFEROL (VITAMIN D 3) 400 UNIT TABLET PO SCH (08:30)
[2022-10-18] MEDS: DICLOFENAC 75 MG PO SCH ×2 (08:31→16:49)
[2022-10-18 10:08] LABS: CALCIUM, SERUM 9.3 mg/dL (8.5-10.1); CREATININE 0.8 mg/dL (0.6-1.3); MAGNESIUM 1.6 mg/dL (1.8-2.4); POTASSIUM 3.5 mmol/L (3.5-5.1)
[2022-10-18] MEDS: ACETAMINOPHEN 325 MG TABLET PO PRN (13:23)
--- NOTE | 2022-10-18 13:23 | NUR ---
NURSE NOTE: PT C/O PAIN. REQUESTED TYL AT THIS TIME. TYL ADMIN ORDERED. PT JODIE WELL. WILL CONT TO MONITOR.
--- NOTE | 2022-10-18 14:20 | NUR ---
NURSE NOTE: PER PT SHE IS FEELING BETTER. TYL EFFECTIVE. WILL CONT TO MONITOR.
[2022-10-18] MEDS: LORAZEPAM 0.5 MG TABLET PO PRN (15:03)
--- NOTE | 2022-10-18 15:03 | NUR ---
NURSE NOTE: PT ANXIOUS AT THIS TIME. SAYS THAT NEIGHBOR IS WANTING TO HURT HER. ATIVAN PO ADMIN ORDERED. PT JODIE WELL WILL CONT TO MONITOR.
[2022-10-18 16:00] VITALS: BP 134/69
--- NOTE | 2022-10-18 16:00 | NUR ---
NURSE NOTE: PT CALM, ATIVAN EFFECTIVE AT THIS TIME. WILL CONT TO MONITOR.
--- NOTE | 2022-10-18 16:48 | NUR ---
NURSE NOTE: PT HAD SECOND EPISODE OF DIARRHEA. IMMODIUM ADMIN ORDERED. WILL CONT TO MONITOR.
[2022-10-18] MEDS: MAGNESIUM OXIDE 400 MG TABLET PO SCH (20:06)
[2022-10-18] MEDS: SIMVASTATIN 20 MG TABLET PO SCH (20:06)
[2022-10-18] MEDS: ENOXAPARIN SODIUM 40 MG/0.4 ML DISP.SYRIN SQ SCH (20:08)
--- NOTE | 2022-10-18 20:27 | NUR ---
GPS RN OPENING NOTE PT AWAKE IN BED. FAMILY AT BEDIDE. A/O X1 AND ABLE TO MAKE NEEDS KNOWN. PT GUARDED, HYPERVERBAL, DEPRESSED, AND MED COMPLIANT WITH FAMILY MEMBERS. PT MEDICALLY STABLE AT THIS TIME. WILL CONT TO MONITOR FOR SAFETY AND BEHAVIOR.
[2022-10-18 20:44] VITALS: BP 129/60
[2022-10-18] MEDS: TEMAZEPAM 7.5 MG CAPSULE PO SCH (21:06)
--- NOTE | 2022-10-19 06:42 | NUR ---
GPS RN CLOSING NOTE PT AWAKE IN BED. FAMILY AT BEDSIDE. A/O X1 AND ABLE TO MAKE NEEDS KNOWN. PT GUARDED, HYPERVERBAL, DEPRESSED, AND MED COMPLIANT WITH FAMILY MEMBERS. PT SLEPT 7 HOURS THIS SHIFT. TURNED AND REPOSITIONED Q2H. KEPT CLEAN AND DRY. PT MEDICALLY STABLE AT THIS TIME. ALL DUE MEDS GIVEN ORDERED. WILL CONT TO MONITOR FOR SAFETY AND BEHAVIOR AND WILL ENDORSE TO ONCOMING NURSE FOR SPENSER.
[2022-10-19] MEDS: BUDESONIDE RESPULE INH 0.5 MG/2 ML AMPUL.NEB NEB SCH (07:05)
[2022-10-19 08:00] VITALS: BP 130/63
--- NOTE | 2022-10-19 08:03 | NUR ---
SW Discharge Note: Patient will be discharged to [facility] [address] [place] [address] ([phone]). Please arrange ambulance transportation at 1PM. Spoke with Muna, Admin Coordinator at the facility who states they are ready to accept the patient today. Patients daughter Mala ([phone]) is aware and agreeable. Patient is alert and oriented x1, is unable to plan for self-care at this time, however, is willing to accept care at [facility]. Patient denies any suicidal or homicidal ideation. Patient will follow-up at the facility with Dr. Valadez (psychiatrist) located at [id number] [place] [address] ([phone]) and (Learning And Development Intern) Dr. Snyder [address] [place] [address] [address], [place] [address]; ([phone]). Patient presents with euthymic mood and congruent affect.
[2022-10-19] MEDS: DICLOFENAC 75 MG PO SCH (08:30)
[2022-10-19] MEDS: BENZTROPINE MESYLATE (1 MG) 1 MG TABLET PO SCH (08:31)
[2022-10-19] MEDS: CHOLECALCIFEROL (VITAMIN D 3) 400 UNIT TABLET PO SCH (08:31)
[2022-10-19] MEDS: GLIMEPIRIDE 1 MG TABLET PO SCH (08:31)
[2022-10-19] MEDS: NITROFURANTOIN/MONOHYDRATE MACROCRYSTALS 100 MG CAPSULE PO SCH (08:31)
[2022-10-19] MEDS: LOSARTAN POTASSIUM 50 MG TABLET PO SCH (08:31)
[2022-10-19 08:32] VITALS: BP 130/63
[2022-10-19] MEDS: risperiDONE 1 MG TABLET PO SCH ×2 (08:32→13:11)
[2022-10-19] MEDS: HYDROCHLOROTHIAZIDE 25 MG TABLET PO SCH (08:32)
[2022-10-19] MEDS: AMLODIPINE BESYLATE 10 MG TABLET PO SCH (08:32)
[2022-10-19] MEDS: METFORMIN 500 MG TABLET PO SCH (08:32)
[2022-10-19] MEDS: CLOTRIMAZOLE 1% 15 GM TUBE TP SCH (08:33)
[2022-10-19] MEDS: Z GUARD REMEDY 4 OZ OINT TP SCH (08:33)
[2022-10-19] MEDS: ACETAMINOPHEN 325 MG TABLET PO PRN ×2 (09:16→09:42)
--- NOTE | 2022-10-19 09:45 | NUR ---
NURSE NOTE: PT C/O PAIN AT THIS TIME. REQUESTED. TYL. TYL PO ADMIN ORDERED. PT JODIE WELL. WILL CONT TO MONITOR.
--- NOTE | 2022-10-19 10:21 | NUR ---
RN-CO: DR Valadez ordered to discontinue hold and discharge patient to [facility], noted and carried out. Nurse Practitioner Pa Lewis seen and examined the patient and medically cleared her for discharge.
--- NOTE | 2022-10-19 10:45 | NUR ---
NURSE NOTE: PT SAYS SHE FEELS A LITTLE BETTER. TYL EFFECTIVE AT THIS TIME. WILL CONT TO MONITOR.
[2022-10-19] MEDS: HYDROCODONE/APAP 5/325MG TABLET PO PRN (13:15)
--- NOTE | 2022-10-19 13:15 | NUR ---
NURSE NOTE: PT C/O PAIN TO R LEG. LEVEL 9/10. NORCO PO ADMIN ORDERED. PT JODIE WELL. WILL CONT TO MONITOR.
--- NOTE | 2022-10-19 14:15 | NUR ---
NURSE NOTE: PT CALM, SAYS SHE FEELS BETTER. NORCO EFFECTIVE AT THIS TIME. WILL CONT TO MONITOR.
--- NOTE | 2022-10-19 14:50 | NUR ---
NURSE NOTE: 66 YEAR OLD FEMALE DISCHARGED TO [facility] IN [place]. COMPLIANT WITH MEDS, COOPERATIVE WITH TREATMENT PLANS. PT DENIES SI/HI AND INSTRUCTED TO LET STAFF OR CHILDREN KNOW IF DEVELOPING SI/HI. BEHAVIOR IMPROVED, PSYCHIATRIC TX PLANS MET, MEDICAL TX PLANS DEFERRED FOR CONTINUAL MONITORING. EDUCATED PT ABOUT AFTER CARE PLAN AND COPY PROVIDED. RETURNED PERSONAL BELONGINGS TO PT. DR BIRMINGHAM DISCONTINUED HOLD. BOTH DR BIRMINGHAM AND DR HENNESSY DISCHARGED PT. MEDICATIONS RECONCILED WITH DR BIRMINGHAM AND DR HENNESSY. REPORT GIVEN TO BART BACH AT [facility]. PT REFUSED TO SIGN DISCHARGE PAPERWORK. PT LEFT THE UNIT AT 1450 VIA AMBULANCE. DAUGHTER LORI AWARE OF DISCHARGE. Addendum: 10/19/22 at 1515 by STEPHANIE MCCOLLUM RN PT TO FOLLOW UP WITH DR BIRMINGHAM (PSYCH) AND DR ANTON (MED)
== END 2022-10-19 14:50 | DRG 885 ==
LOC: ER 11:37 → GPS 14:44
PROVIDERS: ADMIT Psychiatry & Neurology Psychosomatic Medicine; ATTEND Nurse Practitioner Acute Care
DX: F29 Unspecified psychosis not due to a substance or known physiological condition (principal); N39.0 Urinary tract infection, site not specified; D68.69 Other thrombophilia; F03.92 Unspecified dementia, unspecified severity, with psychotic disturbance; F31.9 Bipolar disorder, unspecified; E11.9 Type 2 diabetes mellitus without complications; M19.90 Unspecified osteoarthritis, unspecified site; B96.20 Unspecified Escherichia coli [E. coli] as the cause of diseases classified elsewhere; I10 Essential (primary) hypertension; Z79.84 Long term (current) use of oral hypoglycemic drugs; Z20.822 Contact with and (suspected) exposure to COVID-19; Z74.09 Other reduced mobility
CPT/HCPCS: 36415; 70450-TC; 71045-TC; 73502; 80048-TC; 80053-TC; 81001; 82607-TC; 83735-TC; 84443-TC; 84484-TC; 85025-TC; 87081-TC; 87086-TC; 94799-TC; 97116-TC; 97530-TC; A6403; J1650